=== PATIENT | female | born 1980 | race Caucasian/White ===

== ENCOUNTER 2016-05-22 18:21 | Emergency (ER) | payer OTHER ==
[~2016-05-22] VITALS: Ht 152.4 cm; Wt 89.4 kg
[~2016-05-22 18:21] MED LIST: LEVAQUIN500 MG PO; MOTRIN600 MG PO; PREDNISONE10 MG PO; PROVENTIL HFA6.7 GM IH; PROVENTIL,2.5 MG/3 M IH; TRAMADOL HCL50 MG PO
[2016-05-22 19:42] LABS: ADD MIUA? YES; BILIRUBIN NEGATIVE; BLOOD LARGE; COLOR YELLOW ((YELLOW)); GLUCOSE (STRIP) NEGATIVE; KETONES NEGATIVE; LEUKOCYTES NEGATIVE; NITRITE NEGATIVE; PROTEIN (STRIP) 100; SPECIFIC GRAVITY 1.017 (1.000-1.030); UROBILINOGEN 0.2 MG/DL (0.2-1.0)
[2016-05-22 19:49] LABS: BACTERIA RARE /HPF; CALCIUM OXALATE CRYSTALS 1+ /HPF; EPITHELIAL CELLS 1+ /HPF; MUCUS TRACE /LPF; RED BLOOD CELLS TNTC /HPF (0-5); UCUL ADDED? NO
[2016-05-22 19:54] LABS: HEMATOCRIT 41.5 % (36.0-46.0); MCH 31.3 PG (29.0-34.0); MCHC 33.5 G/DL (30.0-36.0); MCV 93.5 FL (83-99); MEAN PLAT.VOLUME 10.5 uM^3 (9.5-12.4); PLATELET COUNT 242 K/uL (156-360); RBC DIS.WIDTH-CV 12.2 % (11.8-14.6); RBC DIS.WIDTH-SD 42.1 % (39-53); RED BLOOD COUNT 4.44 M/uL (3.80-5.20); WHITE BLOOD COUNT 7.8 K/uL (4.1-10.2)
[2016-05-22 20:02] LABS: CHLORIDE 108 mEq/L (99-109); POTASSIUM 3.9 mEq/L (3.7-5.4); SODIUM 140 mEq/L (136-147)
[2016-05-22 20:04] LABS: GLUCOSE 121 mg/dL (70-99)
[2016-05-22 20:05] LABS: ANION GAP 11 MEQ/L (2-14)
[2016-05-22 20:07] LABS: GFR ESTIMATE (CALCULATED) 49 mL/min/
[2016-05-22 20:08] LABS: UREA NITROGEN (BUN) 17 mg/dL (9-23)
[2016-05-22 20:17] LABS: QUANTITATIVE HCG < 4.0 MIU/ML
[2016-05-22] MEDS ORDERED: FLOMAX0.4 MG PO (22:21)
[2016-05-22] MEDS ORDERED: NORCO 5/3251 TABLET PO (22:21)
[2016-05-22] MEDS ORDERED: CIPRO500 MG PO (22:26)
[2016-05-22 22:55] VITALS: BP 118/76
== END 2016-05-22 22:56 | disposition home or self-care (01) ==
LOC: EME 18:21
PROVIDERS: Physician Assistant
DX: N20.1 Calculus of ureter (principal); R73.9 Hyperglycemia, unspecified; N83.202 Unspecified ovarian cyst, left side; Z87.442 Personal history of urinary calculi; Z87.440 Personal history of urinary (tract) infections; Z88.1 Allergy status to other antibiotic agents; Z88.0 Allergy status to penicillin; F17.200 Nicotine dependence, unspecified, uncomplicated
CPT/HCPCS: 74177; 80048; 81003; 84702; 85027; 87086; 99281; 99285; J1885; J3010; J7030

== ENCOUNTER 2017-10-26 14:49 | Observation (INO) | payer OTHER ==
[~2017-10-26] VITALS: Ht 152.4 cm; Wt 97.4 kg
[~2017-10-26 14:49] MED LIST changes: +CIPRO500 MG PO; +FLOMAX0.4 MG PO; +NORCO 5/3251 TABLET PO
[2017-10-26 15:41] LABS: HEMATOCRIT 42.8 % (36.0-46.0); HEMOGLOBIN 14.7 G/DL (11.9-15.5); MCH 31.5 PG (29.0-34.0); MCHC 34.3 G/DL (30.0-36.0); MCV 91.6 FL (83-99); PLATELET COUNT 273 K/uL (156-360); RBC DIS.WIDTH-CV 12.9 % (11.8-14.6); RBC DIS.WIDTH-SD 43.2 % (39-53); RED BLOOD COUNT 4.67 M/uL (3.80-5.20); WHITE BLOOD COUNT 10.4 K/uL (4.1-10.2)
[2017-10-26 15:49] LABS: ALBUMIN 4.1 g/dL (3.2-4.8); CHLORIDE 107 mEq/L (99-109); POTASSIUM 4.1 mEq/L (3.7-5.4); SODIUM 142 mEq/L (136-147)
[2017-10-26 15:51] LABS: GLUCOSE 98 mg/dL (70-99); TOTAL PROTEIN 7.2 g/dL (6.4-8.3)
[2017-10-26 15:53] LABS: TOTAL BILIRUBIN 0.6 mg/dL (0.0-1.0)
[2017-10-26 15:55] LABS: ALKALINE PHOSPHATASE 111 IU/L (3-129); CREATININE 0.9 mg/dL (0.6-1.3); GFR ESTIMATE (CALCULATED) > 59 mL/min/
[2017-10-26 15:56] LABS: UREA NITROGEN (BUN) 13 mg/dL (9-23)
[2017-10-26 15:57] LABS: AST (GOT) 27 IU/L (2-34)
[2017-10-26 15:58] LABS: ALT (GPT) 50 IU/L (3-49)
[2017-10-26 16:02] LABS: TROP-I INTERPRETATION NEGATIVE; TROPONIN-I < 0.01 ng/mL (0.0-0.30)
[2017-10-26 16:04] LABS: QUANTITATIVE HCG < 4.0 MIU/ML
[2017-10-26 16:20] LABS: APPEARANCE CLEAR ((CLEAR)); BILIRUBIN NEGATIVE; BLOOD NEGATIVE; COLOR YELLOW ((YELLOW)); GLUCOSE (STRIP) NEGATIVE; KETONES NEGATIVE; LEUKOCYTES NEGATIVE; NITRITE NEGATIVE; PROTEIN (STRIP) NEGATIVE; UCUL ADDED? NO; UROBILINOGEN 0.2 MG/DL (0.2-1.0)
[2017-10-26 17:44] LABS: D-DIMER ELISA < 150.00 ng/mLDDU (<230)
[2017-10-26] MEDS ORDERED: FIORICET 50-301 EAC1 PO (18:20)
[2017-10-26] MEDS ORDERED: FIORICET PO (18:24)
[2017-10-26] MEDS ORDERED: LYRICA150 MG PO (18:25)
[2017-10-26] MEDS ORDERED: DILTIAZEM 24HR120 MG PO (18:26)
[2017-10-26] MEDS ORDERED: LEXAPRO20 MG PO (18:27)
[2017-10-26] MEDS ORDERED: PROMETHAZINE HC25 M1 PO (18:28)
[2017-10-26] MEDS ORDERED: FLINTSTONES1 EACH PO (18:29)
[2017-10-26] MEDS ORDERED: 24 HOUR ALLER15.8 ML BOTH NARES (18:29)
[2017-10-26] MEDS ORDERED: VITAMIN B-125000 MC1 PO (18:30)
[2017-10-26] MEDS ORDERED: VITAMIN D5000 UNI1 PO (18:30)
[2017-10-26] MEDS ORDERED: LIDOCAINE700 MG TP (18:31)
[2017-10-26] MEDS ORDERED: XANAX1 MG PO (18:33)
[2017-10-26] MEDS ORDERED: ALPRAZOLAM1 MG PO (18:33)
[2017-10-26] MEDS ORDERED: AMLODIPINE BESYL5 MG PO (18:34)
[2017-10-26] MEDS ORDERED: SYNTHROID88 MCG PO (18:34)
[2017-10-26] MEDS ORDERED: CYCLOBENZAPRINE10 MG PO (18:35)
[2017-10-26] MEDS ORDERED: DOXYCYCLINE HY100 MG PO (18:35)
[2017-10-26 19:00] LABS: TROP-I INTERPRETATION NEGATIVE; TROPONIN-I < 0.01 ng/mL (0.0-0.30)
[2017-10-26 23:00] VITALS: BP 139/84
[2017-10-27 03:47] VITALS: BP 130/84
[2017-10-27 03:50] LABS: TROP-I INTERPRETATION NEGATIVE; TROPONIN-I < 0.01 ng/mL (0.0-0.30)
[2017-10-27 07:27] VITALS: BP 113/76
[2017-10-27 08:04] LABS: THYROTROPIN (TSH) 0.58 MIU/L (0.4-5.5)
[2017-10-27 11:59] VITALS: BP 123/76
[2017-10-27] MEDS ORDERED: AMLODIPINE BESYL5 MG PO (12:52)
[2017-10-27] MEDS ORDERED: DILTIAZEM 24HR240 MG PO (12:52)
== END 2017-10-27 14:29 | disposition home or self-care (01) ==
LOC: EME 14:49 → EDOF 21:51 → 4SOUTH 21:51 → ENRESERV 21:53 → 4SOUTH 23:07
PROVIDERS: Nurse Practitioner Family; Physician Assistant
DX: R07.89 Other chest pain (principal); I11.9 Hypertensive heart disease without heart failure; Q23.8 Other congenital malformations of aortic and mitral valves; F41.9 Anxiety disorder, unspecified; F32.9 Major depressive disorder, single episode, unspecified; E03.9 Hypothyroidism, unspecified; M79.7 Fibromyalgia; E66.9 Obesity, unspecified; F17.210 Nicotine dependence, cigarettes, uncomplicated; Z82.49 Family history of ischemic heart disease and other diseases of the circulatory system; Z90.710 Acquired absence of both cervix and uterus
CPT/HCPCS: 71046; 80053; 81003; 84443; 84484; 84702; 85027; 85379; 93005; 99281; 99285; G0378; J1644